=== PATIENT | female | born 1960 | race Asian ===

== ENCOUNTER 2022-12-18 19:49 | Emergency (ER) | payer OTHER ==
[2022-12-18 20:10] VITALS: BP 123/73; PULSE 94; RESP 18; TEMP 98.8; BMI 26.5
== END 2022-12-18 20:30 | disposition home or self-care (01) ==
LOC: FER 19:49
DX: R21 Rash and other nonspecific skin eruption (principal); L27.0 Generalized skin eruption due to drugs and medicaments taken internally
CPT/HCPCS: 99282-25